=== PATIENT | male | born 1940 | race Caucasian/White ===

== ENCOUNTER 2022-02-06 05:57 | Day surgery (SDC) | payer MEDICARE, BC ==
[2022-01-30 09:42] LABS: BASOPHILS % (AUTO) 0.6 % (0-1); EOSINOPHILS # (AUTO) 0.2 X10'3 (0-0.9); EOSINOPHILS % (AUTO) 3.6 % (0-6); HEMATOCRIT 44.9 % (42.0-52.0); HEMOGLOBIN 14.8 g/dl (14.0-17.9); LYMPHOCYTES # (AUTO) 1.2 X10'3 (1.1-4.8); LYMPHOCYTES % (AUTO) 17.5 % (21-51); MEAN CORPUSCULAR HEMOGLOBIN 31.8 PG (27.0-31.0); MEAN CORPUSCULAR HGB CONC 32.9 g/dL (33.0-36.5); MEAN CORPUSCULAR VOLUME 96.7 FL (78-98); MEAN PLATELET VOLUME 7.9 FL (7.4-10.4); MONOCYTES # (AUTO) 0.7 X10'3 (0-0.9); MONOCYTES % (AUTO) 10.8 % (2-12); NEUTROPHILS # (AUTO) 4.6 X10'3 (1.8-7.7); NEUTROPHILS % (AUTO) 67.5 % (42-75); PLATELET COUNT 239 X10'3 (140-440); RED BLOOD COUNT 4.64 X10'6 (4.70-6.10); WHITE BLOOD COUNT 6.8 X10'3 (4.5-11.0)
[2022-01-30 09:55] LABS: APTT 26 SECONDS (22-32)
[2022-01-30 09:57] LABS: ALANINE AMINOTRANSFERASE 20 U/L (12-78); ALBUMIN 3.6 G/DL (3.4-5.0); ALBUMIN/GLOBULIN RATIO 1.1 (1.1-1.5); ALKALINE PHOSPHATASE 74 IU/L (46-116); ANION GAP 6 (8-16); ASPARTATE AMINO TRANSFERASE 25 U/L (10-37); BILIRUBIN,TOTAL 0.4 MG/DL (0.1-1.0); BLOOD UREA NITROGEN 19 MG/DL (7-18); CALCIUM 8.6 MG/DL (8.5-10.1); CHLORIDE 107 MMOL/L (99-107); CREATININE 1.19 MG/DL (0.60-1.10); GLUCOSE 104 MG/DL (70-104); POTASSIUM 4.6 MMOL/L (3.5-5.1); SODIUM 142 MMOL/L (135-145); eGFR 59 ML/MIN
[~2022-02-06] VITALS: Ht 177.8 cm; Wt 106.2 kg
[2022-02-06] VITALS (11 sets, daily range): BP systolic 117–159; BP diastolic 44–84
[2022-02-06] MEDS ORDERED: SIMV-45 PO (06:16)
[2022-02-06] MEDS ORDERED: QUIN10TA35 PO (06:16)
[2022-02-06] MEDS ORDERED: nitroGLYCERIN 0.4mg SUBLingual tab SL PRN ×2 (06:20→09:35)
[2022-02-06] MEDS ORDERED: diphenhydrAMINE 25mg capsule PO PRN (06:20)
[2022-02-06] MEDS ORDERED: normal saline 1,000 ML IV SCH (06:20)
[2022-02-06] MEDS ORDERED: LORazepam 0.5 MG tablet PO PRN (06:20)
[2022-02-06] MEDS ORDERED: ASPI-1071 PO (06:24)
[2022-02-06] MEDS ORDERED: BUPR75TA8 PO (06:24)
[2022-02-06] MEDS ORDERED: CYAN250010 PO (06:24)
[2022-02-06] MEDS ORDERED: METH10CP15 PO (06:24)
[2022-02-06] MEDS ORDERED: CHOL200012 PO (06:24)
[2022-02-06] MEDS ORDERED: CALC-336 PO (06:24)
[2022-02-06] MEDS ORDERED: MONT-40 PO (06:26)
[2022-02-06] MEDS ORDERED: iohexol 350MG/ML 100ml bottle IV ONE ×2 (07:27→08:19)
[2022-02-06] MEDS ORDERED: midazolam 1 mg/ML 2ml injection ONE (07:27)
[2022-02-06] MEDS ORDERED: fentaNYL/PF 50MCG/1 ML 2ML syringe ONE (07:27)
[2022-02-06] MEDS ORDERED: LIDOcaine 1% 30ml preserv. free vial ONE (07:43)
[2022-02-06] MEDS ORDERED: ondansetron/PF 4mg/2ml inj IV PRN (09:30)
[2022-02-06] MEDS ORDERED: normal saline 1000ml 1,000 ML IV SCH (09:30)
[2022-02-06] MEDS ORDERED: proCHLORperazine 10 MG/2 ml inj IV PRN (09:35)
[2022-02-06] MEDS ORDERED: HYDROcodone/acetaminophen 5mg/325mg tablet PO PRN (09:35)
[2022-02-06] MEDS ORDERED: OXAZEpam 15mg capsule PO PRN (09:35)
[2022-02-06] MEDS ORDERED: HYDROcodone/acetaminophen 10/325mg tab PO PRN (09:35)
== END 2022-02-06 15:00 | disposition home or self-care (01) ==
LOC: SSTAY O 05:57
PROVIDERS: ATTEND Internal Medicine Cardiovascular Disease
DX: R94.39 Abnormal result of other cardiovascular function study (principal); I25.10 Atherosclerotic heart disease of native coronary artery without angina pectoris; I42.9 Cardiomyopathy, unspecified; I10 Essential (primary) hypertension; E78.5 Hyperlipidemia, unspecified; F32.A Depression, unspecified; I35.2 Nonrheumatic aortic (valve) stenosis with insufficiency; M19.90 Unspecified osteoarthritis, unspecified site; Z87.891 Personal history of nicotine dependence; Z96.651 Presence of right artificial knee joint; Z98.890 Other specified postprocedural states; Z86.73 Personal history of transient ischemic attack (TIA), and cerebral infarction without residual deficits; Z79.899 Other long term (current) drug therapy; Z79.01 Long term (current) use of anticoagulants
CPT/HCPCS: 36415; 71046; 80053; 85025; 85610; 85730; 93005; 93458; 99152; C1760; C1769; J1644; J2250; J3010; J3490; J7030; Q0163; Q9967; 99153; A4620; A6258